=== PATIENT | female | born 1935 | race Caucasian/White ===

== ENCOUNTER 2019-03-25 09:52 | Outpatient (CLI) | payer MEDICARE | END 2019-03-25 23:59 | disposition home or self-care (01) | LOC: VAS 09:52 | PROVIDERS: ATTEND Radiology Diagnostic Radiology | DX: M79.605 Pain in left leg (principal); R60.0 Localized edema; S30.1XXA Contusion of abdominal wall, initial encounter; Z87.891 Personal history of nicotine dependence; X58.XXXA Exposure to other specified factors, initial encounter; Y93.89 Activity, other specified; Y92.89 Other specified places as the place of occurrence of the external cause; Y99.8 Other external cause status | CPT/HCPCS: 93971 ==

== ENCOUNTER 2021-11-10 19:34 | Emergency (ER) | payer MEDICARE ==
[~2021-11-10] VITALS: Ht 170.2 cm; Wt 49.5 kg
[2021-11-10] MEDS ORDERED: silver sulfadiazine cream 50gm TP ONE (20:10)
--- NOTE | 2021-11-10 21:11 | NUR ---
PT STATES HER PAIN HAS RESOLVED FROM 03/18 TO 07/19 FOLLOWING WOUND CARE AND APPLICATION OF SILVER SILVADINE. PT STATES SHE WISHES TO GO HOME AND HAS A HOUSE STYLES, BUT NEEDED A [employer] VOUCHER. [facility] CALLED ETA 10 MIN.
[2021-11-10 21:14] VITALS: BP 162/90
== END 2021-11-10 21:18 | disposition home or self-care (01) ==
LOC: ER 19:35
DX: L97.818 Non-pressure chronic ulcer of other part of right lower leg with other specified severity (principal); I10 Essential (primary) hypertension; Z90.49 Acquired absence of other specified parts of digestive tract
CPT/HCPCS: 99282; 99283

== ENCOUNTER 2022-01-09 20:21 | Emergency (ER) | payer MEDICARE ==
[~2022-01-09] VITALS: Ht 170.2 cm; Wt 47.7 kg
[2022-01-09 21:37] LABS: BASOPHILS # (AUTO) 0.1 X10'3 (0-0.2); HEMOGLOBIN 12.5 g/dl (12.0-16.0)
[2022-01-09 21:38] LABS: BASOPHILS % (AUTO) 0.6 % (0-1); EOSINOPHILS % (AUTO) 0.3 % (0-6); HEMATOCRIT 35.8 % (35.0-45.0); LYMPHOCYTES # (AUTO) 1.5 X10'3 (1.1-4.8); LYMPHOCYTES % (AUTO) 13.6 % (21-51); MEAN CORPUSCULAR HEMOGLOBIN 29.3 PG (27.0-31.0); MEAN CORPUSCULAR HGB CONC 34.9 g/dL (33.0-36.5); MEAN CORPUSCULAR VOLUME 83.8 FL (78-98); MEAN PLATELET VOLUME 7.6 FL (7.4-10.4); MONOCYTES # (AUTO) 3.2 X10'3 (0-0.9); MONOCYTES % (AUTO) 28.8 % (2-12); NEUTROPHILS # (AUTO) 6.2 X10'3 (1.8-7.7); NEUTROPHILS % (AUTO) 56.7 % (42-75); PLATELET COUNT 123 X10'3 (140-440); RED BLOOD COUNT 4.27 X10'6 (4.20-5.60)
[2022-01-09 21:42] LABS: ALANINE AMINOTRANSFERASE 20 U/L (12-78); ALBUMIN 3.4 G/DL (3.4-5.0); ALBUMIN/GLOBULIN RATIO 0.9 (1.1-1.5); ALKALINE PHOSPHATASE 109 IU/L (46-116); ANION GAP 9 (8-16); ASPARTATE AMINO TRANSFERASE 18 U/L (10-37); BILIRUBIN,TOTAL 0.6 MG/DL (0.1-1.0); BLOOD UREA NITROGEN 16 MG/DL (7-18); BUN/CREATININE RATIO 15.5 (6.6-38.0); CALCIUM 9.2 MG/DL (8.5-10.1); CHLORIDE 87 MMOL/L (99-107); CREATININE 1.03 MG/DL (0.40-0.90); GLUCOSE 166 MG/DL (70-104); LIPASE 77 U/L (73-393); POTASSIUM 3.2 MMOL/L (3.5-5.1); SODIUM 126 MMOL/L (135-145); TOTAL CARBON DIOXIDE 29.8 MMOL/L (24-32); eGFR 51 ML/MIN
[2022-01-09 21:59] LABS: TOTAL CELLS COUNTED 100
[2022-01-09 22:01] LABS: LARGE PLATELETS FEW
[2022-01-09 22:16] LABS: CLARITY,URINE CLEAR (Clear); COLOR,URINE YELLOW (Yellow); GLUCOSE, URINE NEGATIVE (Neg); KETONES,URINE NEGATIVE (Neg); LEUKOCYTE ESTERASE ,URINE NEGATIVE (Neg); NITRITES, URINE NEGATIVE (Neg); OCCULT BLOOD,URINE SMALL (Neg); PH,URINE 7.5 (4.8-8.0); PROTEIN,URINE NEGATIVE (Neg); UROBILINOGEN,URINE 0.2 E.U/dL (0.2-1.0)
[2022-01-09 22:18] LABS: UA COLLECTION TYPE STRAIGHT CATH
[2022-01-09 22:21] LABS: AMORPHOUS PHOSPHATES 2+; BACTERIA,URINE FEW /HPF (Neg); SQUAMOUS EPITHELIAL CELL,UR FEW /LPF (FEW); WBC,URINE 0-4 /HPF (0-4)
[2022-01-09] MEDS ORDERED: normal saline 1000ML IV soln IVB ONE (23:05)
[2022-01-09] MEDS ORDERED: pantoprazole 40 MG vial IV ONE (23:05)
[2022-01-09] MEDS ORDERED: pantoprazole 40MG/NS 100ML BAG 100 ML IV ONE (23:25)
--- NOTE | 2022-01-10 01:05 | NUR ---
patient states that she took laxatives prior to arriving in ED. placed commode bedside for patient. patient actively having loose stools/diarrhea. notified ED physician.
[2022-01-10 01:44] VITALS: BP 141/73
[2022-01-10 02:49] LABS: ALBUMIN 3.2 G/DL (3.4-5.0); ANION GAP 8 (8-16); BLOOD UREA NITROGEN 16 MG/DL (7-18); BUN/CREATININE RATIO 16.3 (6.6-38.0); CALCIUM 8.7 MG/DL (8.5-10.1); CHLORIDE 91 MMOL/L (99-107); CREATININE 0.98 MG/DL (0.40-0.90); GLUCOSE 120 MG/DL (70-104); POTASSIUM 3.2 MMOL/L (3.5-5.1); SODIUM 128 MMOL/L (135-145); TOTAL CARBON DIOXIDE 29.1 MMOL/L (24-32); eGFR 54 ML/MIN
--- NOTE | 2022-01-10 08:05 | NUR ---
FAMILY MEMBER, STEFFI, CALLED. 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
--- NOTE | 2022-01-10 08:35 | NUR ---
PT AMBULATED WITH STEADY GAIT TO/FROM RESTROOM. CHANGED INTO PERSONAL CLOTHING. FOOD PROVIDED.
[2022-01-10 09:51] LABS: PLATELET ESTIMATE DECREASED
--- NOTE | 2022-01-10 10:25 | NUR ---
STEFFI CALLED AGAIN, STATES SHE IS ON HER WAY.
== END 2022-01-10 11:07 | disposition home or self-care (01) ==
LOC: ER 20:22
DX: K56.7 Ileus, unspecified (principal); I10 Essential (primary) hypertension; Z98.890 Other specified postprocedural states; Z88.1 Allergy status to other antibiotic agents
CPT/HCPCS: 36415; 74177; 80048; 80053; 81001; 83690; 85007; 85025; 96374; 99284; C1758; C9113; J7030

== ENCOUNTER 2022-06-07 01:19 | Inpatient (IN) | payer MEDICARE ==
[2022-06-07] VITALS (19 sets, daily range): BP systolic 108–160; BP diastolic 62–97
[~2022-06-07] VITALS: Ht 170.2 cm; Wt 47.7 kg
[2022-06-07] MEDS ORDERED: ondansetron/PF 4mg/2ml inj IV ONE (01:40)
[2022-06-07] MEDS ORDERED: morphine 4 MG/ML inj SYRINge IV ONE (01:40)
[2022-06-07 02:28] LABS: NEUTROPHILS # (AUTO) 9.6 X10'3 (1.8-7.7)
[2022-06-07 02:30] LABS: BASOPHILS # (AUTO) 0.1 X10'3 (0-0.2); BASOPHILS % (AUTO) 0.7 % (0-1); EOSINOPHILS % (AUTO) 0.1 % (0-6); HEMATOCRIT 39.3 % (35.0-45.0); HEMOGLOBIN 13.1 g/dl (12.0-16.0); LYMPHOCYTES # (AUTO) 1.9 X10'3 (1.1-4.8); LYMPHOCYTES % (AUTO) 10.9 % (21-51); MEAN CORPUSCULAR HEMOGLOBIN 27.7 PG (27.0-31.0); MEAN CORPUSCULAR HGB CONC 33.2 g/dL (33.0-36.5); MEAN CORPUSCULAR VOLUME 83.5 FL (78-98); MEAN PLATELET VOLUME 8.2 FL (7.4-10.4); MONOCYTES # (AUTO) 5.7 X10'3 (0-0.9); MONOCYTES % (AUTO) 32.9 % (2-12); NEUTROPHILS % (AUTO) 55.4 % (42-75); PLATELET COUNT 121 X10'3 (140-440); RED BLOOD COUNT 4.71 X10'6 (4.20-5.60); RED CELL DISTRIBUTION WIDTH 17.5 % (11.5-14.5); WHITE BLOOD COUNT 17.4 X10'3 (4.5-11.0)
[2022-06-07] MEDS ORDERED: iohexol 300mg/ml 100ml inj. ONE (02:33)
[2022-06-07 02:46] LABS: ALANINE AMINOTRANSFERASE 20 U/L (12-78); ALBUMIN 3.6 G/DL (3.4-5.0); ALKALINE PHOSPHATASE 106 IU/L (46-116); ANION GAP 9 (8-16); BILIRUBIN,TOTAL 0.8 MG/DL (0.1-1.0); BLOOD UREA NITROGEN 20 MG/DL (7-18); CALCIUM 9.7 MG/DL (8.5-10.1); CHLORIDE 90 MMOL/L (99-107); CREATININE 0.87 MG/DL (0.40-0.90); GLUCOSE 175 MG/DL (70-104); MAGNESIUM 1.8 MG/DL (1.5-2.4); SODIUM 126 MMOL/L (135-145); TOTAL CARBON DIOXIDE 26.8 MMOL/L (24-32); TOTAL PROTEIN 7.1 G/DL (6.4-8.2); eGFR 62 ML/MIN
[2022-06-07 02:51] LABS: ASPARTATE AMINO TRANSFERASE 34 U/L (10-37); POTASSIUM 3.5 MMOL/L (3.5-5.1)
[2022-06-07 03:32] LABS: ANISOCYTOSIS 1+; PLATELET ESTIMATE DECREASED; TOTAL CELLS COUNTED 100
[2022-06-07 03:35] LABS: ELLIPTOCYTES FEW
[2022-06-07] MEDS ORDERED: piperacillin/tazo 3.375gm/50ml 50 ML IV ONE (03:45)
[2022-06-07 03:47] LABS: CLARITY,URINE CLEAR (Clear); COLOR,URINE YELLOW (Yellow); GLUCOSE, URINE NEGATIVE (Neg); KETONES,URINE NEGATIVE (Neg); LEUKOCYTE ESTERASE ,URINE NEGATIVE (Neg); NITRITES, URINE NEGATIVE (Neg); OCCULT BLOOD,URINE MODERATE (Neg); PROTEIN,URINE NEGATIVE (Neg); UROBILINOGEN,URINE 0.2 E.U/dL (0.2-1.0)
[2022-06-07 03:48] LABS: SMUDGE CELLS FEW
[2022-06-07 03:52] LABS: UA COLLECTION TYPE NON-SPECIFIED
[2022-06-07 03:53] LABS: RBC,URINE TNTC /HPF (0-2); SQUAMOUS EPITHELIAL CELL,UR FEW /LPF (FEW)
[2022-06-07 03:54] LABS: BACTERIA,URINE NONE SEEN /HPF (Neg); TRANSITIONAL EPI CELLS,URINE FEW /HPF; WBC,URINE 0-4 /HPF (0-4)
[2022-06-07] MEDS ORDERED: pantoprazole 40mg IV 80 MG in normal saline 100ml IV soln 100 ML IV ONE (04:35)
[2022-06-07] MEDS ORDERED: morphine 2 MG/ML inj. syringe IV ONE (06:55)
[2022-06-07 07:20] LABS: APTT 28 SECONDS (22-32)
[2022-06-07] MEDS ORDERED: LIDOcaine 1% 30ml preserv. free vial ONE (08:04)
[2022-06-07] MEDS ORDERED: BUPIVAcaine 0.5% inj/PF 30 ML ONE (08:04)
[2022-06-07] MEDS ORDERED: HYDROmorphone/PF 0.2 MG/ML SYRINGE IV PRN (08:10)
[2022-06-07] MEDS ORDERED: bisacodyl 10mg suppository rectal RC PRN (08:10)
[2022-06-07] MEDS ORDERED: HYDROcodone/acetaminophen 5mg/325mg tablet PO PRN ×2 (08:10→10:00)
[2022-06-07] MEDS ORDERED: ondansetron 4mg rapidly disintigrating tab PO PRN (08:10)
[2022-06-07] MEDS ORDERED: HYDROmorphone inj. 0.5 MG/0.5 ML DISP.SYRIN IV PRN (08:10)
[2022-06-07] MEDS ORDERED: magnesium Cl slow-release 64mg tablet PO PRN (08:10)
[2022-06-07] MEDS: normal saline 1000ml 1,000 ML IV SCH ×2 (08:10→22:28)
[2022-06-07] MEDS ORDERED: mag hydrox/Alum hydrox/simeth 30ml oral suspension PO PRN (08:10)
[2022-06-07] MEDS ORDERED: HYDROcodone/acetaminophen 10/325mg tab PO PRN (08:10)
[2022-06-07] MEDS ORDERED: acetaminophen 325mg tablet PO PRN ×2 (08:10)
[2022-06-07] MEDS ORDERED: magnesium 4gm in 100ml NS 100 ML IV PRN (08:10)
[2022-06-07] MEDS ORDERED: potassium Cl 20 mEq SR tablet PO PRN (08:10)
[2022-06-07] MEDS ORDERED: potassium Cl 40MEQ/1/2NS 520ml 520 ML IV PRN (08:10)
[2022-06-07] MEDS ORDERED: magnesium hydroxide 30ml (MOM) UD suspension PO PRN (08:10)
[2022-06-07] MEDS ORDERED: ondansetron/PF 4mg/2ml inj IV PRN ×2 (08:10→08:15)
[2022-06-07] MEDS ORDERED: proCHLORperazine 10 MG/2 ml inj IV PRN (08:15)
[2022-06-07] MEDS ORDERED: ringers solution, lacted 1,000 ML IV SCH (08:15)
[2022-06-07] MEDS ORDERED: morphine 4 MG/ML inj SYRINge IV PRN (08:15)
[2022-06-07] MEDS ORDERED: morphine 2 MG/ML inj. syringe IV PRN (08:15)
[2022-06-07] MEDS ORDERED: meperidine/PF 25mg/ml syringe IV PRN ×3 (08:15)
[2022-06-07] MEDS ORDERED: FENTANYL CITRATE/PF 50 MCG/1 ML VIAL ONE (08:16)
[2022-06-07] MEDS ORDERED: midazolam 1 mg/ML 2ml injection ONE (08:16)
[2022-06-07] MEDS ORDERED: propofol inj 20 ML IV ONE (08:52)
[2022-06-07] MEDS ORDERED: LIDOcaine 2% (20mg/ml) 5ml vial ONE (08:52)
[2022-06-07] MEDS ORDERED: rocuronium 10mg/ml inj IV ONE (08:52)
[2022-06-07] MEDS ORDERED: ceFAZolin 1000mg inj ONE ×2 (09:11)
[2022-06-07] MEDS ORDERED: BUPIVAcaine 0.5% inj/PF 30 ml vial IJ ONE (09:24)
[2022-06-07] MEDS ORDERED: LIDOcaine 1% 30ml preserv. free vial IJ ONE (09:24)
[2022-06-07] MEDS ORDERED: neostigmine methylsulfate 1 MG/ML 10ml vial ONE (09:51)
[2022-06-07] MEDS ORDERED: glycopyrrolate 0.2mg/ml inj ONE (09:51)
[2022-06-07] MEDS ORDERED: dexamethasone sod phosphate 4mg/ml inj. ONE (09:53)
[2022-06-07] MEDS ORDERED: ondansetron/PF 4mg/2ml inj ONE (09:53)
--- NOTE | 2022-06-07 09:59 | NUR ---
Received from OR via BED, accompanied by Anesthesiologist DR WOODALL and report given by Anesthesiologist AND ACCOUNT RESOLUTION EXPERT. PT VERY DROWSY, NO S/S OF DISTRESS/DISCOMFORT, ABDOMEN W/3 LAP SITES W/BANDAIDS CDI. RIGHT KRISSY PEREZ CLAMPED. Addendum: 06/07/22 at 1026 by Sandee Dueñas RN Amended: Links added.
[2022-06-07] MEDS ORDERED: naloxone 0.4 mg/ml inj IV PRN (10:00)
--- NOTE | 2022-06-07 10:45 | NUR ---
Patient in room [facility]. I have received report from Sandee MARTINO and had the opportunity to ask questions and assume patient care.
--- NOTE | 2022-06-07 11:39 | NUR ---
Report called to receiving nurse. Transferred via BED ON CM, NO Belongings, PT STATES SHE BROUGHT IN A PURSE AND GLASSES, CALL INTO ER, THEY WILL LOOK AND CALL BACK. RECEIVING RN AT BEDSIDE TO RECEIVE PT. Special Issues communicated to receiving nurse. YES. Addendum: 06/07/22 at 1146 by Sandee Dueñas RN Amended: Links added.
[2022-06-07] MEDS ORDERED: LOSA100T57 PO (12:26)
[2022-06-07] MEDS ORDERED: CHLO50TA PO (12:26)
[2022-06-07] MEDS ORDERED: CETI10TA14 PO (12:26)
--- NOTE | 2022-06-07 18:56 | NUR ---
Problems reprioritized. Patient report given, questions answered & plan of care reviewed with Floresita MARTINO.
[2022-06-07] MEDS: K and/or MAG REPLACEMENT MC SCH (20:00)
[2022-06-07] MEDS: docusate sod 100mg capsule PO SCH (20:17)
[2022-06-07] MEDS ORDERED: temazepam 15mg capsule PO PRN (21:00)
[2022-06-08 02:00] VITALS: BP 118/64
[2022-06-08] MEDS: normal saline 1000ml 1,000 ML IV SCH (03:56)
[2022-06-08 06:00] VITALS: BP 120/63
--- NOTE | 2022-06-08 06:06 | NUR ---
Problems reprioritized. Patient report given, questions answered & plan of care reviewed with GUNNER Bee.
--- NOTE | 2022-06-08 06:19 | NUR ---
Patient in room [facility]. I have received report from and had the opportunity to ask questions and assume patient care.
[2022-06-08 06:34] LABS: HEMATOCRIT 29.2 % (35.0-45.0); MEAN CORPUSCULAR HEMOGLOBIN 28.4 PG (27.0-31.0); MEAN CORPUSCULAR VOLUME 83.4 FL (78-98)
[2022-06-08 06:36] LABS: MEAN CORPUSCULAR HGB CONC 34.1 g/dL (33.0-36.5); MEAN PLATELET VOLUME 7.7 FL (7.4-10.4); PLATELET COUNT 86 X10'3 (140-440); RED CELL DISTRIBUTION WIDTH 17.4 % (11.5-14.5); WHITE BLOOD COUNT 10.9 X10'3 (4.5-11.0)
[2022-06-08 06:37] LABS: ALANINE AMINOTRANSFERASE 14 U/L (12-78); ALBUMIN 2.5 G/DL (3.4-5.0); ALBUMIN/GLOBULIN RATIO 0.9 (1.1-1.5); ALKALINE PHOSPHATASE 68 IU/L (46-116); ANION GAP 6 (8-16); ASPARTATE AMINO TRANSFERASE 20 U/L (10-37); BILIRUBIN,TOTAL 0.5 MG/DL (0.1-1.0); BLOOD UREA NITROGEN 12 MG/DL (7-18); BUN/CREATININE RATIO 16.9 (6.6-38.0); CALCIUM 8.1 MG/DL (8.5-10.1); CHLORIDE 96 MMOL/L (99-107); CREATININE 0.71 MG/DL (0.40-0.90); GLUCOSE 101 MG/DL (70-104); SODIUM 128 MMOL/L (135-145); TOTAL CARBON DIOXIDE 26.5 MMOL/L (24-32); TOTAL PROTEIN 5.2 G/DL (6.4-8.2); eGFR 78 ML/MIN
[2022-06-08 06:45] LABS: POTASSIUM 2.9 MMOL/L (3.5-5.1)
[2022-06-08] MEDS: K and/or MAG REPLACEMENT MC SCH (06:58)
[2022-06-08] MEDS: potassium Cl 20 mEq SR tablet PO PRN ×3 (06:59→16:03)
[2022-06-08 07:53] LABS: ANISOCYTOSIS 1+; ELLIPTOCYTES FEW; PLATELET ESTIMATE DECREASED; SCHISTOCYTES FEW; SMUDGE CELLS 2+
[2022-06-08] MEDS: docusate sod 100mg capsule PO SCH (08:00)
[2022-06-08] MEDS ORDERED: CefTRIAXone/D5W-Rocephin 1gm 50 ML IV SCH (08:00)
[2022-06-08] MEDS ORDERED: losartan 50mg tablet PO SCH (08:00)
[2022-06-08] MEDS ORDERED: cetirizine 10mg tablet PO SCH (08:00)
[2022-06-08] MEDS ORDERED: chlorthalidone 25mg tablet PO SCH (08:00)
[2022-06-08 10:00] VITALS: BP 126/80
--- NOTE | 2022-06-08 10:24 | NUR ---
Pt with a low BMI though current documented wt isn't scaled however is stable with documented wt hx in EMR (also not scaled). Diet has just been advanced to regular, pending first meal since diet advancement from clear liquids. Pt with no documented decrease in muscle strength or edema. Pt appears well developed well nourished per physician note. Pt currently lacks a minimum of two criteria for malnutrition. Will continue to follow and further monitor qualifying criteria for malnutrition. Addendum: 06/08/22 at [address] Amended: Links added.
--- NOTE | 2022-06-08 11:00 | NUR ---
Dr Delcid stated to pt that she could be DC'd home when she has flatus or BM.
--- NOTE | 2022-06-08 11:30 | NUR ---
Pt verbalized desire to DC home today, however instructed pt that Dr. Sy would like to check K+ level to be WNL after K replacements this afternoon and won't be done until 1800 or so. Pt stated she wanted a cab to take her home tonight and not spend another night in hospital.
[2022-06-08] MEDS ORDERED: POTA-206 PO (15:34)
[2022-06-08] MEDS ORDERED: LEVO-65 PO (15:34)
--- NOTE | 2022-06-08 18:00 | NUR ---
Patient report given, questions answered & plan of care reviewed with Floresita Gottlieb RN.
[2022-06-08 18:04] LABS: MAGNESIUM 1.7 MG/DL (1.5-2.4); POTASSIUM 4.4 MMOL/L (3.5-5.1)
--- NOTE | 2022-06-08 18:51 | NUR ---
K++ 4.4. DC packet and instructions went over with patient. PIV out. Called to get patient belongings from safe. Taxi to be called for transport.
[2022-06-09 08:48] LABS: TOTAL CELLS COUNTED 100
== END 2022-06-08 19:40 | disposition home health service (06) | DRG 351 ==
LOC: ER 01:19 → ED HOLD 08:10 → SUR 3N 11:27
PROVIDERS: ADMIT Family Medicine; ATTEND Family Medicine
PROC: 8E0W4CZ Robotic Assisted Procedure of Trunk Region, Percutaneous Endoscopic Approach (ICD-10-PCS; 2022-06-07)
PROC: 0D9670Z Drainage of Stomach with Drainage Device, Via Natural or Artificial Opening (ICD-10-PCS; 2022-06-07)
PROC: BW211ZZ Computerized Tomography (CT Scan) of Abdomen and Pelvis using Low Osmolar Contrast (ICD-10-PCS; 2022-06-07)
PROC: 0YQ54ZZ Repair Right Inguinal Region, Percutaneous Endoscopic Approach (ICD-10-PCS; principal; 2022-06-07 08:35)
DX: K40.30 Unilateral inguinal hernia, with obstruction, without gangrene, not specified as recurrent (principal); E87.1 Hypo-osmolality and hyponatremia; L03.90 Cellulitis, unspecified; I87.8 Other specified disorders of veins; Z66 Do not resuscitate; Z60.2 Problems related to living alone; E11.9 Type 2 diabetes mellitus without complications; E87.6 Hypokalemia; I10 Essential (primary) hypertension; Z90.49 Acquired absence of other specified parts of digestive tract; Z88.1 Allergy status to other antibiotic agents
CPT/HCPCS: 36415; 71045; 74177; 80053; 81001; 82948; 83605; 83735; 84132; 84145; 85007; 85025; 85610; 85730; 87040; 87081; 96365; 96375; 96376; 99285; A4215; A4615; A4618; A6212; A6223; A6258; A6446; C1758; C9113; G0378; J0690; J1100; J2250; J2270; J2405; J2543; J2704; J2710; J3010; J3490; J7030; Q9967; S0020

== ENCOUNTER 2023-08-28 23:51 | Emergency (ER) | payer MEDICARE ==
[~2023-08-28] VITALS: Ht 157.5 cm; Wt 40.9 kg
[~2023-08-28 23:51] MED LIST: CETI10TA14 PO; CHLO50TA PO; LOSA100T58 PO; POTA-206 PO
[2023-08-29 00:54] LABS: HEMATOCRIT 22.5 % (35.0-45.0); HEMOGLOBIN 7.6 g/dl (12.0-16.0); MEAN CORPUSCULAR HEMOGLOBIN 27.8 PG (27.0-31.0); MEAN CORPUSCULAR HGB CONC 33.6 g/dL (33.0-36.5); MEAN CORPUSCULAR VOLUME 82.9 FL (78-98); MEAN PLATELET VOLUME 7.4 FL (7.4-10.4); PLATELET COUNT 100 X10'3 (140-440); RED BLOOD COUNT 2.72 X10'6 (4.20-5.60)
[2023-08-29 00:59] LABS: ALANINE AMINOTRANSFERASE 11 U/L (12-78); ALBUMIN 2.5 G/DL (3.4-5.0); ALBUMIN/GLOBULIN RATIO 0.9 (1.1-1.5); ALKALINE PHOSPHATASE 65 IU/L (46-116); ANION GAP 12 (8-16); ASPARTATE AMINO TRANSFERASE 26 U/L (10-37); BILIRUBIN,TOTAL 0.3 MG/DL (0.1-1.0); BLOOD UREA NITROGEN 58 MG/DL (7-18); BUN/CREATININE RATIO 40.6 (10.0-20.0); CHLORIDE 103 MMOL/L (99-107); CREATININE 1.43 MG/DL (0.40-0.90); GLUCOSE 106 MG/DL (70-104); MAGNESIUM 1.4 MG/DL (1.5-2.4); POTASSIUM 4.2 MMOL/L (3.5-5.1); SODIUM 139 MMOL/L (135-145); TOTAL CARBON DIOXIDE 24.2 MMOL/L (24-32); TOTAL PROTEIN 5.4 G/DL (6.4-8.2); eCRCL 18 ML/MIN; eGFR 35 ML/MIN
[2023-08-29] MEDS ORDERED: pantoprazole 40 MG vial IV STA (01:17)
[2023-08-29 01:18] LABS: WHITE BLOOD COUNT 28.6 X10'3 (4.5-11.0)
[2023-08-29] MEDS ORDERED: ringers solution, lacted 1,000 ML IV ONE (01:20)
[2023-08-29] MEDS ORDERED: pantoprazole 40mg IV 80 MG in normal saline 100ml IV soln 100 ML IV ONE (01:20)
[2023-08-29 01:31] LABS: INR 1.1 INR
[2023-08-29 01:39] VITALS: BP 133/66; PULSE 88; RESP 18; TEMP 97.8; O2SAT 94
[2023-08-29 01:54] LABS: APTT 20 SECONDS (22-32)
[2023-08-29 02:04] LABS: PLATELET ESTIMATE DECREASED; TOTAL CELLS COUNTED 100
[2023-08-29 02:05] LABS: SMUDGE CELLS 1+
[2023-08-29 02:06] LABS: ANISOCYTOSIS 1+; ELLIPTOCYTES FEW; POLYCHROMASIA FEW; SCHISTOCYTES FEW
== END 2023-08-29 01:43 ==
LOC: ER 23:51
DX: S02.109A Fracture of base of skull, unspecified side, initial encounter for closed fracture (principal); S06.2XAA Diffuse traumatic brain injury with loss of consciousness status unknown, initial encounter; I10 Essential (primary) hypertension; K92.2 Gastrointestinal hemorrhage, unspecified; E86.0 Dehydration; D72.829 Elevated white blood cell count, unspecified; K92.1 Melena; R51.9 Headache, unspecified; Z88.1 Allergy status to other antibiotic agents; Z79.899 Other long term (current) drug therapy; Z98.890 Other specified postprocedural states; W19.XXXA Unspecified fall, initial encounter; Y93.89 Activity, other specified; Y92.89 Other specified places as the place of occurrence of the external cause; Y99.8 Other external cause status
CPT/HCPCS: 36415; 70450; 71045; 72125; 80053; 83735; 85007; 85025; 85610; 85730; 86885; 86900; 86901; 93005; 99291